=== PATIENT | female | born 2000 | race Caucasian/White ===

== ENCOUNTER 2021-11-14 18:18 | Outpatient (REF) | payer OTHER, SELFPAY ==
[2021-11-15 20:42] LABS: COVID-19 RT-PCR UVMMC Result Negative (Negative)
== END 2021-11-14 18:19 | disposition home or self-care (01) ==
LOC: LBN 18:18
PROVIDERS: Visit Provider Physician Assistant Medical
DX: J02.9 Acute pharyngitis, unspecified (principal); Z20.822 Contact with and (suspected) exposure to COVID-19
CPT/HCPCS: U0003; 87070